=== PATIENT | female | born 2000 | race Caucasian/White ===

== ENCOUNTER → 2018-05-03 | Outpatient (CLI) | payer BC ==
[~2018-05-03] MED LIST: GADOBUTROL 7.5 MMOL/7.5 ML VIAL INT ART ONE; IOHEXOL 300 MG/ML 50 ML VIAL. INT ART ONE; LIDOCAINE 1% Multi-Dose 20 ML VIAL. ID ONE; METF500T16 PO
--- NOTE | 2018-05-03 13:41 | KCIC ---
MR arthrogram of the left shoulder Indication: Left shoulder pain. SLAP tear. Limited range of motion for 2 weeks. Technique: Intra-articular contrast injected into the glenohumeral joint and is reported separately. Routine 4 plane sequences were obtained, including ABER positioning. FINDINGS: Artifact: No significant image degradation. Acromioclavicular joint: Intact. Note that the os acromiale is not yet united, can be a normal finding at this age. Rotator cuff: * Supraspinatus-infraspinatus tendon: Intact * Subscapularis tendon: Intact * Muscle bulk: Within normal limits * Subacromial subdeltoid bursa: No significant fluid or contrast accumulation. Articular cartilage: No acute cartilage defect or advanced DJD. Labrum: No evidence of labral tear or para labral cyst Biceps tendon: Intact Bones: No lesion or acute fracture. Soft tissue: No acute findings. Impression: No evidence of internal derangement or acute abnormality. Electronically signed by: Bola Gómez MD (05/03/2018 1:38 PM) [id number]
--- NOTE | 2018-05-03 15:06 | KCIC ---
Indication: Left shoulder pain in the knee as and limited range of motion for 2 months. Patient presents for pre-MRI arthrogram. TECHNIQUE: After explaining risks and benefits of the procedure, informed consent was obtained. The skin was prepped and draped using usual sterile procedure. Under fluoroscopy guidance 22-gauge spinal needle was introduced in the joint space. The tip of the needle was performed using IV contrast. 15 mL of gadolinium based contrast mixed with 2.5 mL of lidocaine and 2.5 mL of iodinated contrast was injected into the joint space. The needle was drawn and the skin was cleaned with alcohol. Bandage was placed. Patient left the fluoroscopy suite in stable condition for MRI. Findings/ impression: Uncomplicated pre-MRI left shoulder arthrogram. Electronically signed by: Kenny Zamarripa DO (05/03/2018 3:03 PM) [facility]
== END | disposition home or self-care (01) ==
LOC: KCIC 10:14
PROVIDERS: ATTEND Orthopaedic Surgery
DX: M25.512 Pain in left shoulder (principal); Z87.828 Personal history of other (healed) physical injury and trauma
CPT/HCPCS: 73040; 73222; A9585; Q9967